=== PATIENT | female | born 1940 | race Caucasian/White ===

== ENCOUNTER 2017-07-17 11:11 | Emergency (ER) | payer MEDICARE, OTHER ==
[2017-07-17 11:45] LABS: BASOPHILS 0.3 % (0-2); EOSINOPHILS 0.9 % (0-7); HEMATOCRIT 40.8 % (36.0-48.0); HEMOGLOBIN 13.6 g/dL (12-16); IMMATURE GRANULOCYTES 0.2 % (0-5); LYMPHOCYTES 31.5 % (15-50); MCHC 33.3 g/dL (31.0-37.0); NEUTROPHILS 61.1 % (40-80); PLATELET COUNT 210 10x3/uL (130-400); RBC 4.12 10x6/uL (4.00-5.40); RDW 13.8 % (11.5-14.5); WBC 6.5 10x3/uL (4.8-10.8)
[2017-07-17 12:17] LABS: ALBUMIN 3.9 g/dL (3.4-5.0); ANION GAP 12.7 mmol/L (8-16); BILIRUBIN - TOTAL 0.29 mg/dL (0.2-1.3); CALCIUM 9.1 mg/dL (8.5-10.1); CARBON DIOXIDE 28.5 mmol/L (21.0-32.0); POTASSIUM - SERUM 4.2 mmol/L (3.5-5.1); PROTEIN - SERUM 7.4 g/dL (6.4-8.2)
[2017-07-17 13:49] LABS: CKMB 1.1 U/L (0.0-3.6); CREATINE KINASE 72 UL (21-215); MAGNESIUM - SERUM 2.3 mg/dL (1.8-2.4); PRO BNP 205 pg/mL (0-450)
[2017-07-17 13:50] LABS: TROPONIN-I < 0.017 ng/mL (0.000-0.060)
== END 2017-07-17 17:08 | disposition home or self-care (01) ==
LOC: D.ER 11:11
PROVIDERS: Family Medicine
DX: R42 Dizziness and giddiness (principal); F17.200 Nicotine dependence, unspecified, uncomplicated

== ENCOUNTER → 2017-11-20 07:37 | Outpatient (CLI) | payer MEDICARE, OTHER | END | disposition home or self-care (01) | LOC: D.NM 07:37 | DX: R42 Dizziness and giddiness (principal) ==

== ENCOUNTER → 2018-01-01 11:06 | Outpatient (CLI) | payer MEDICARE, OTHER | END | disposition home or self-care (01) | LOC: D.NM 11:06 | DX: R11.2 Nausea with vomiting, unspecified (principal); R10.9 Unspecified abdominal pain ==

== ENCOUNTER 2018-04-16 23:31 | Emergency (ER) | payer MEDICARE, OTHER ==
[~2018-04-16] VITALS: Ht 162.6 cm; Wt 45.9 kg
[2018-04-16 23:40] VITALS: Ht 162.6 cm; Wt 45.9 kg
[2018-04-16] MEDS ORDERED: OMEPRAZOLE40 MG PO (23:42)
[2018-04-16] MEDS ORDERED: DONEPEZIL HCL5 M1 PO (23:42)
[2018-04-16] MEDS ORDERED: ATIVAN0.5 MG PO (23:42)
[2018-04-16] MEDS ORDERED: BAYER CHEWABLE81 MG PO (23:43)
[2018-04-16] MEDS ORDERED: ZOFRAN4 MG PO (23:43)
[2018-04-17 00:01] LABS: HEMATOCRIT 38.3 % (36.0-48.0); HEMOGLOBIN 12.9 g/dL (12-16); LYMPHOCYTES 34.2 % (15-50); MCH 32.3 pg (26.0-34.0); MCHC 33.7 g/dL (31.0-37.0); NEUTROPHILS 58.1 % (40-80); PLATELET COUNT 288 10x3/uL (130-400); RBC 3.99 10x6/uL (4.00-5.40); RDW 13.2 % (11.5-14.5); WBC 7.1 10x3/uL (4.8-10.8)
[2018-04-17 00:14] LABS: ALBUMIN 3.6 g/dL (3.4-5.0); ANION GAP 11.2 mmol/L (8-16); BILIRUBIN - TOTAL 0.19 mg/dL (0.2-1.3); CALCIUM 9.4 mg/dL (8.5-10.1); CARBON DIOXIDE 29.8 mmol/L (21.0-32.0); CREATININE - SERUM 0.9 mg/dL (0.6-1.3); PROTEIN - SERUM 7.7 g/dL (6.4-8.2)
[2018-04-17 00:52] LABS: PRO BNP 350 pg/mL (0-450)
[2018-04-17 00:54] LABS: TROPONIN-I < 0.017 ng/mL (0.000-0.060)
[2018-04-17 01:24] VITALS: BP 125/69
== END 2018-04-17 01:24 | disposition home or self-care (01) ==
LOC: D.ER 23:31
PROVIDERS: Emergency Medicine
DX: J44.9 Chronic obstructive pulmonary disease, unspecified (principal); G20 Parkinson's disease; F17.200 Nicotine dependence, unspecified, uncomplicated

== ENCOUNTER 2018-07-08 14:21 | Inpatient (IN) | payer MEDICARE, OTHER ==
[~2018-07-08] VITALS: Ht 162.6 cm; Wt 42.2 kg
[~2018-07-08 14:21] MED LIST: ATIVAN0.5 MG PO; BAYER CHEWABLE81 MG PO; DONEPEZIL HCL5 M1 PO; OMEPRAZOLE40 MG PO; ZOFRAN4 MG PO
[2018-07-08] MEDS ORDERED: ATIVAN1 MG PO (15:36)
[2018-07-08] MEDS ORDERED: VITAMIN B-12500 MC1 PO (15:45)
[2018-07-08] MEDS ORDERED: REQUIP3 MG PO (15:49)
[2018-07-08] MEDS ORDERED: BENTYL10 MG PO (15:52)
[2018-07-08] MEDS ORDERED: FISH OIL 1,0001 CA1 PO (15:57)
[2018-07-08] MEDS ORDERED: DESERYL50 M2 PO (16:01)
[2018-07-08] MEDS ORDERED: TRAZODONE HCL100 MG PO (16:02)
[2018-07-08] MEDS ORDERED: MARINOL5 MG PO (16:06)
[2018-07-08] MEDS ORDERED: ZOLOFT50 MG PO (16:19)
[2018-07-08 16:21] VITALS: BP 120/69; BMI 16.0
[2018-07-08 19:00] VITALS: BP 134/70
[2018-07-09 07:51] LABS: ANION GAP 15.1 mmol/L (8-16); BASOPHILS 0.3 % (0-2); CALCIUM 8.4 mg/dL (8.5-10.1); CARBON DIOXIDE 19.6 mmol/L (21.0-32.0); CREATININE - SERUM 0.9 mg/dL (0.6-1.3); EOSINOPHILS 1.6 % (0-7); HEMATOCRIT 35.5 % (36.0-48.0); HEMOGLOBIN 11.7 g/dL (12-16); IMMATURE GRANULOCYTES 0.5 % (0-5); LYMPHOCYTES 35.8 % (15-50); MCH 33.8 pg (26.0-34.0); MCV 102.6 fL (80.0-100.0); MEAN PLATELET VOLUME 9.7 fL (7.4-10.4); MONOCYTES 7.3 % (2-11); NEUTROPHILS 54.5 % (40-80); POTASSIUM - SERUM 3.7 mmol/L (3.5-5.1); RBC 3.46 10x6/uL (4.00-5.40); RDW 13.9 % (11.5-14.5); WBC 6.2 10x3/uL (4.8-10.8)
[2018-07-09 08:00] VITALS: BP 113/52
[2018-07-09 08:17] LABS: PLATELET COUNT 184 10x3/uL (130-400)
[2018-07-09 11:15] VITALS: Ht 162.6 cm; Wt 42.2 kg
[2018-07-09 19:00] VITALS: BP 125/63
[2018-07-10 08:00] VITALS: BP 112/57
[2018-07-10 20:00] VITALS: BP 102/40
[2018-07-11 08:00] VITALS: BP 129/58
[2018-07-11 21:06] VITALS: BP 122/53
[2018-07-12 07:16] LABS: BASOPHILS 0.4 % (0-2); EOSINOPHILS 2.3 % (0-7); HEMATOCRIT 35.2 % (36.0-48.0); HEMOGLOBIN 11.8 g/dL (12-16); IMMATURE GRANULOCYTES 0.2 % (0-5); LYMPHOCYTES 39.4 % (15-50); MCH 33.1 pg (26.0-34.0); MCHC 33.5 g/dL (31.0-37.0); MCV 98.9 fL (80.0-100.0); MONOCYTES 6.3 % (2-11); NEUTROPHILS 51.4 % (40-80); PLATELET COUNT 210 10x3/uL (130-400); RBC 3.56 10x6/uL (4.00-5.40); RDW 13.5 % (11.5-14.5); WBC 5.3 10x3/uL (4.8-10.8)
[2018-07-12 07:33] LABS: ANION GAP 17.2 mmol/L (8-16); CALCIUM 8.4 mg/dL (8.5-10.1); CARBON DIOXIDE 19.2 mmol/L (21.0-32.0); POTASSIUM - SERUM 3.4 mmol/L (3.5-5.1)
[2018-07-12 08:00] VITALS: BP 143/56
[2018-07-12 19:00] VITALS: BP 102/47
[2018-07-13 08:12] VITALS: BP 121/66
[2018-07-13 19:00] VITALS: BP 134/51
[2018-07-14 07:29] LABS: BASOPHILS 0.3 % (0-2); EOSINOPHILS 2.3 % (0-7); HEMATOCRIT 36.5 % (36.0-48.0); HEMOGLOBIN 12.3 g/dL (12-16); IMMATURE GRANULOCYTES 0.2 % (0-5); LYMPHOCYTES 24.2 % (15-50); MCH 33.7 pg (26.0-34.0); MCHC 33.7 g/dL (31.0-37.0); MEAN PLATELET VOLUME 9.2 fL (7.4-10.4); RBC 3.65 10x6/uL (4.00-5.40); RDW 13.5 % (11.5-14.5)
[2018-07-14 07:50] LABS: CALCIUM 8.8 mg/dL (8.5-10.1); CARBON DIOXIDE 19.5 mmol/L (21.0-32.0); POTASSIUM - SERUM 3.5 mmol/L (3.5-5.1)
[2018-07-14 07:56] LABS: PLATELET COUNT 259 10x3/uL (130-400)
[2018-07-14 08:00] VITALS: BP 118/50
[2018-07-14 19:00] VITALS: BP 98/40
[2018-07-15 08:08] VITALS: BP 113/57
--- NOTE | 2018-07-15 08:32 | RHP ---
PATIENT: ULICES WHITLOCK MEDICAL RECORD: [id number] ACCOUNT: [id number] [facility] [place] : 44 ADMISSION DATE: 07/08/18 REHABILITATION HISTORY AND PHYSICAL EXAMINATION POST ADMISSION PHYSICIAN EXAMINATION DATE OF ADMISSION: 07/08/2018 ADMITTING DIAGNOSIS: Parkinson's disease. HISTORY OF PRESENT ILLNESS: The patient is admitted from her home for exacerbation of Parkinson disease. A 78-year-old female patient. She has been followed by [facility]. She was seen on 06/21/[address] Branham's clinic for mobility evaluation secondary to deconditioning, slowed gait, tremors and fatigue. She presented with increased muscle weakness, arthralgias, joint pain, and difficulty walking. The patient has got a history of COPD, emphysema, hypertriglyceridemia, mixed hyperlipidemia, gastroesophageal reflux disease. Home Health and her spouse both noted that she was continuing to decline in her physical and nutritional condition. It was recommended that she come to rehabilitation. She currently has a BMI less than 20. Symptoms of bradykinesia, possible polypharmacy that needs adjustment during her stay. She also is going to require some medical management by a physician at least 5 days per week and 24-hour care of a rehab nurse. The patient has extreme weakness, which is more proximal than distal. She has had increased impaired ability to do tasks of daily living to assist with dressing, feeding, grooming and bathing. She required intensive therapy including PT and OT and speech therapy to regain her strength, improve her gait and mobility. Also, she can use some help with her cognition and memory. All these self-care deficits in activity tolerance, all creating a considerable and taxing effort on her ability to stay at home. She had a history of falls also, she recently fell on 06/18/2018. Her /caregiver will require further education and training of the disease process, home safety instructions to be provided by nursing and also our interdisciplinary therapy team during this stay. Hopefully, we will get her home better than her prior level of functioning. COMORBIDITIES: Include a BMI less than 20, abnormal gait, unintentional weight loss, vertigo, emphysema, COPD, gastroesophageal reflux disease, osteoarthritis, age-related osteoporosis, nicotine dependence, depression and dementia. PAST MEDICAL HISTORY: Significant for colon polyps, hypertriglyceridemia, hyperlipidemia, anxiety, history of carotid stenosis, emphysema, gastroesophageal reflux disease and dizziness. PAST SURGICAL HISTORY: Includes breast biopsy, total hysterectomy, endoscopy. She has had a colonoscopy. ALLERGIES: No known drug allergies. CURRENT MEDICATIONS: Include Tylenol 650 mg every 6 hours p.r.n., B12 500 mcg daily, omega 3 one cap daily, aspirin 81 mg daily, Protonix 40 mg daily, trazodone 50 mg at bedtime, Zofran 4 mg every 4 hours p.r.n., Marinol 5 mg b.i.d. with meals, Zoloft 50 mg b.i.d., Bentyl 10 mg t.i.d., lorazepam 1 mg t.i.d. p.r.n. and Requip 3 mg t.i.d. HISTORY AND PHYSICAL [id number] ULICES WHITLOCK HABITS: No alcohol or tobacco use. FAMILY HISTORY: Noncontributory. SOCIAL HISTORY: The patient hopes to return back home with her . REVIEW OF SYSTEMS: GENERAL: Does complain of weakness and fatigue. HEENT: Denies cold, cough, or congestion. CARDIOVASCULAR: Denies chest pain. PHYSICAL EXAMINATION: VITAL SIGNS: Stable, afebrile. GENERAL: A very small petite female in no acute distress, alert upon exam. HEENT: Normocephalic and atraumatic. Mucosa moist. NECK: Supple. No lymphadenopathy. LUNGS: Clear at this time. HEART: Regular rate and rhythm. No murmurs, rubs or gallops. ABDOMEN: Benign. EXTREMITIES: No clubbing, cyanosis or edema. NEUROLOGIC: Consistent with Parkinson's with a noted tremor and flat affect. LABORATORY DATA: Her white count is 6.2, H&H of 11.7 and 35.5 and platelet count is 184. Sodium 139, potassium 3.7, BUN and creatinine of 16 and 0.9, blood sugar is noted to be 79. ASSESSMENT: This 78-year-old female patient admitted to rehab with a working diagnosis of exacerbation of Parkinson's. The patient has potential to make improvement. We instituted the following multidisciplinary therapies including, but not limited to physical, occupational, respiratory, speech, nutritional services, prosthetics and orthotics. Given her complex medical condition and risk for more complications, rehabilitation services cannot be provided at a low level of care such as penitentiary facility. PLAN: 1. Admit to [facility] for intensive inpatient therapy to include the following disciplines: A. Physical therapy to improve gait, all transfer skills and bed mobility to a modified independent level. B. Occupational therapy to a modified independent level. C. Case management to assist with discharge planning and placement options. D. Nutrition to assist with nutritional needs. E. Rehabilitation nursing to assist in monitoring the patient's underlying medical conditions and to assist with any type of bowel or bladder management. 2. The patient's current medication and medical care will be continued. 3. We will monitor medications closely including her Requip and adjust as necessary. 4. I am going to follow up in the a.m. TRANSINT:[id number] Voice Confirmation ID: [id number] DOCUMENT ID: [id number] 07/13/2018 Edited for willow SINGH. FRANCISCO notes whether there has been none or any medical/functional change since admission: HISTORY AND PHYSICAL [id number] ULICES WHITLOCK - No change since preadmission screen. FRANCISCO attests patient continues to be appropriate for IRF: - Continues to be appropriate. MIKE GAMA MD at 0832 CC: [id number] DICTATION DATE: 07/09/18 0821 CONFIGURATION DEVELOPER: 07/09/18 0947 ADM IN [facility] [address] [place] [address]
--- NOTE | 2018-07-15 16:45 | CN ---
PATIENT NAME:ULICES WHITLOCK MEDICAL RECORD: [id number] : 44 LOCATION:[id number] ADMIT DATE: 07/08/18 ACCOUNT: [id number] CONSULTING PHYSICIAN: RUBEN SCHROEDER MD REFERRING PHYSICIAN: MIKE GAMA MD DATE OF CONSULTATION: 07/14/2018 IDENTIFYING DATA: The patient is 78 years old and she is admitted to the hospital secondary to deconditioning. HISTORY OF PRESENT ILLNESS: The patient apparently is not eating very well. She is becoming increasingly weak. She has a BMI that is less than 20. Apparently, she has been given Requip for some restless legs, trazodone for sleep consolidation, and I presume Zoloft for an antidepressant. The patient is very cooperative, awake and alert, but clearly quite confused and not answering questions clearly. Her sitting across the room on the empty bed next to her and she does not know who he is or what his relationship is to her. She answers questions in a very impaired manner. The says that this is inconsistent with her general picture that it comes and goes. She is confused, but then she is not. He says he has had her to a neurologist who says this is not Parkinson's disease. He says he has had her to a psychologist who has told her that it is not dementia. He is frustrated and confused. MENTAL STATUS EXAMINATION: The patient is awake and alert. She is oriented to person only. Her mood is euthymic. Her affect is appropriate. Thought processes are disorganized. She has severe impairment of her memory, concentration and abstraction abilities. There is no evidence of acute dangerousness or overt psychotic symptoms. ASSESSMENT: Dementia, type uncertain either Parkinson's related or more than likely Alzheimer dementia. PLAn: The patient is clearly impaired and the level of impairment is consistent with a dementia. Unfortunately, when I go to discuss this with the , he tells me that ordinarily or intermittently she is impaired in this way and at other times, she is very coherent. He says he has had her to a neurologist who has told him that this is not Parkinson disease. He says he has taken her to a psychologist who tells him this is definitely not dementia, but does not tell him what it is. The psychologist according to the says that it is related to her taking too many medicines, but the psychologist then goes on to say that she is not able to adjust medications because of her lack of credentials in that area. ASSESSMENT: Senile dementia of the Alzheimer's type. PLAN: At this time, I think the patient is demented. I think the patient's is a very nice and kind and well-meaning man who certainly has not misleading anyone, but the symptoms do not look like delirium. It does not look like medication side effects. It does look like a dementia and the fact that sometimes the patient is more coherent than at other times is not inconsistent with the disease suggest that him describing her as being completely lucid and completely coherent at times and then at other times, impaired with her cognition in this way does not fit. I do not have anything specific to offer other than the fact that it appears to be a dementia. I would recommend that the patient keep her appointment with a neurologist at [facility]. I am not sure how CONSULT REPORT [id number] ULICES WHITLOCK to reconcile this with what the psychologist has told and especially cannot do so given my limited access to records at this point. I can say that the patient is not acutely dangerous. She is not suicidal, psychotic, or homicidal and her takes very good care of her and watch her closely. Probably the biggest concern is her reduced oral intake. Obviously, she is going to grow weaker and become susceptible to pneumonia or some other opportunistic infection if she does not get out of bed and function and move about more. TRANSINT:[id number] Voice Confirmation ID: [id number] DOCUMENT ID: [id number] RUBEN SCHROEDER MD at 1645 CC: [id number] DICTATION DATE: 07/14/18 172 DATA REVIEWER: 07/15/18 0147 [facility] [address] [place] [address]
[2018-07-15 19:00] VITALS: BP 120/57
[2018-07-16 07:24] LABS: BASOPHILS 0.6 % (0-2); EOSINOPHILS 3.7 % (0-7); HEMATOCRIT 35.3 % (36.0-48.0); HEMOGLOBIN 11.8 g/dL (12-16); IMMATURE GRANULOCYTES 0.2 % (0-5); LYMPHOCYTES 35.6 % (15-50); MCH 32.9 pg (26.0-34.0); MCHC 33.4 g/dL (31.0-37.0); MCV 98.3 fL (80.0-100.0); MEAN PLATELET VOLUME 8.9 fL (7.4-10.4); MONOCYTES 9.5 % (2-11); NEUTROPHILS 50.4 % (40-80); PLATELET COUNT 254 10x3/uL (130-400); RBC 3.59 10x6/uL (4.00-5.40); RDW 13.6 % (11.5-14.5); WBC 5.4 10x3/uL (4.8-10.8)
[2018-07-16 07:35] LABS: ANION GAP 16.3 mmol/L (8-16); CALCIUM 8.6 mg/dL (8.5-10.1); CARBON DIOXIDE 20.8 mmol/L (21.0-32.0); CREATININE - SERUM 0.9 mg/dL (0.6-1.3); POTASSIUM - SERUM 3.1 mmol/L (3.5-5.1)
[2018-07-16 07:47] VITALS: BP 122/62
[2018-07-17 08:18] VITALS: BP 118/65
[2018-07-18 00:10] VITALS: BP 107/50
[2018-07-18 07:59] VITALS: BP 114/64
[2018-07-18 18:43] VITALS: BP 110/61
[2018-07-19 07:40] LABS: BASOPHILS 0.6 % (0-2); EOSINOPHILS 2.3 % (0-7); HEMATOCRIT 35.3 % (36.0-48.0); HEMOGLOBIN 12.2 g/dL (12-16); IMMATURE GRANULOCYTES 0.2 % (0-5); LYMPHOCYTES 29.8 % (15-50); MCH 33.7 pg (26.0-34.0); MCHC 34.6 g/dL (31.0-37.0); MCV 97.5 fL (80.0-100.0); MEAN PLATELET VOLUME 8.6 fL (7.4-10.4); MONOCYTES 9.2 % (2-11); NEUTROPHILS 57.9 % (40-80); PLATELET COUNT 233 10x3/uL (130-400); RBC 3.62 10x6/uL (4.00-5.40); RDW 13.4 % (11.5-14.5); WBC 5.2 10x3/uL (4.8-10.8)
[2018-07-19 07:50] LABS: ANION GAP 17.7 mmol/L (8-16); CALCIUM 8.7 mg/dL (8.5-10.1); CARBON DIOXIDE 18.9 mmol/L (21.0-32.0); CREATININE - SERUM 0.9 mg/dL (0.6-1.3); POTASSIUM - SERUM 3.6 mmol/L (3.5-5.1)
[2018-07-19 08:00] VITALS: BP 100/49
[2018-07-19] MEDS ORDERED: MEGACE40 MG PO (08:14)
== END 2018-07-19 12:00 | disposition home health service (06) | DRG 57 ==
LOC: D.REHAB 14:21
PROVIDERS: ADMIT Emergency Medicine
DX: G20 Parkinson's disease (principal); Z68.1 Body mass index [BMI] 19.9 or less, adult; R63.4 Abnormal weight loss; R42 Dizziness and giddiness; J43.9 Emphysema, unspecified; K21.9 Gastro-esophageal reflux disease without esophagitis; M19.90 Unspecified osteoarthritis, unspecified site; F17.200 Nicotine dependence, unspecified, uncomplicated; F32.9 Major depressive disorder, single episode, unspecified; R53.1 Weakness; G30.9 Alzheimer's disease, unspecified; F02.80 Dementia in other diseases classified elsewhere, unspecified severity, without behavioral disturbance, psychotic disturbance, mood disturbance, and anxiety

== ENCOUNTER 2018-07-21 14:28 | Outpatient (CLI) | payer MEDICARE, OTHER ==
[~2018-07-21 14:28] MED LIST changes: +ATIVAN1 MG PO; +BENTYL10 MG PO; +DESERYL50 M2 PO; +FISH OIL 1,0001 CA1 PO; +MARINOL5 MG PO; +MEGACE40 MG PO; +REQUIP3 MG PO; +TRAZODONE HCL100 MG PO; +VITAMIN B-12500 MC1 PO; +ZOLOFT50 MG PO
[2018-07-21] MEDS ORDERED: VITAMIN B-12500 MC1 PO (14:50)
[2018-07-21] MEDS ORDERED: SEROQUEL25 MG PO (14:50)
[2018-07-22 13:23] VITALS: BMI 16.1
== END 2018-07-21 17:51 | disposition other institution (70) ==
LOC: D.OPS 14:28
PROVIDERS: ATTEND Family Medicine
DX: R53.1 Weakness (principal)

== ENCOUNTER 2018-07-21 14:28 | Inpatient (IN) | payer MEDICARE, OTHER ==
[~2018-07-21] VITALS: Ht 162.6 cm; Wt 42.6 kg
[2018-07-21] MEDS ORDERED: VITAMIN B-12500 MC1 PO (14:50)
[2018-07-21] MEDS ORDERED: SEROQUEL25 MG PO (14:50)
[2018-07-21 15:00] VITALS: BP 120/70
[2018-07-21 15:39] LABS: APPEARANCE CLEAR (CLEAR); BILIRUBIN NEGATIVE (NEGATIVE); COLOR YELLOW (YELLOW); GLUCOSE NEGATIVE (NEGATIVE); KETONE NEGATIVE (NEGATIVE); NITRITE NEGATIVE (NEGATIVE); PROTEIN NEGATIVE (NEGATIVE); UROBILINOGEN NORMAL (NORMAL)
[2018-07-21 16:00] VITALS: BP 126/84
[2018-07-21 16:14] LABS: BASOPHILS 0.5 % (0-2); EOSINOPHILS 2.2 % (0-7); HEMATOCRIT 35.5 % (36.0-48.0); HEMOGLOBIN 11.7 g/dL (12-16); IMMATURE GRANULOCYTES 0.4 % (0-5); LYMPHOCYTES 29.3 % (15-50); MCH 33.1 pg (26.0-34.0); MCV 100.3 fL (80.0-100.0); MEAN PLATELET VOLUME 8.9 fL (7.4-10.4); MONOCYTES 10.1 % (2-11); NEUTROPHILS 57.5 % (40-80); PLATELET COUNT 237 10x3/uL (130-400); RBC 3.54 10x6/uL (4.00-5.40); RDW 13.6 % (11.5-14.5); WBC 5.6 10x3/uL (4.8-10.8)
[2018-07-21 16:34] LABS: ALBUMIN 3.2 g/dL (3.4-5.0); ALKALINE PHOSPHATASE 52 U/L (46-116); ALT (SGPT) 23 U/L (10-68); BILIRUBIN - TOTAL 0.15 mg/dL (0.2-1.3); CALC OSMOLALITY 287 mosm/kg (275-300); CALCIUM 8.6 mg/dL (8.5-10.1); CARBON DIOXIDE 20.7 mmol/L (21.0-32.0); CHLORIDE - SERUM 112 mmol/L (98-107); CREATININE - SERUM 0.9 mg/dL (0.6-1.3); GLUCOSE 106 mg/dL (74-106); POTASSIUM - SERUM 4.2 mmol/L (3.5-5.1); PROTEIN - SERUM 6.9 g/dL (6.4-8.2); SODIUM 144 mmol/L (136-145); UREA NITROGEN 14 mg/dL (7-18); eGFR NON AFRICAN AMERICAN 64 mL/min (90-120)
[2018-07-21 16:37] LABS: AMYLASE - SERUM 38 U/L (25-115); LIPASE 97 U/L (73-393)
[2018-07-21 16:38] LABS: TROPONIN-I < 0.017 ng/mL (0.000-0.060)
[2018-07-21 17:00] VITALS: BP 137/72
[2018-07-21 18:14] VITALS: BP 127/71
--- NOTE | 2018-07-21 18:16 | NUR ---
CALLED AND ORDERED PT A TRAY.
[2018-07-21 19:07] VITALS: BP 121/73
--- NOTE | 2018-07-21 19:36 | NUR ---
REPORT CALLED TO ROVERTO
--- NOTE | 2018-07-21 20:30 | NUR ---
PT TO FLOOR VIA BED ACCOMPANIED BY HOSPITAL STAFF AND FAMILY. A/0 TO PERSON. VSS, RR EVEN AND UL. NO S/S OF DISTRESS. WENT OVER SPECIFIC MED REC REQUESTS WITH PT AND DAUGHTER. PT SEEMS SLIGHTLY CONFUSED. FALL PRECAUTIONS IN TACT, WCTM AND FOLLOW POC. CL IN REACH, SR UP X2, BED IN LOWEST POSITION. ADMINISSION ASSESSMENT AND HISTORY COMPLETED. FAMILY AT BEDSIDE.
--- NOTE | 2018-07-21 22:00 | NUR ---
22G INSERTED INTO R FA X1 STICK AND WRAPPED WITH PATRICK BANDAGE. PT PULLED OUT PREVIOUS IV IN L AC. CATHETER INTACT. NO C/O DISCOMFORT AT NEW IV SITE. WCTM AND FOLLOW POC. CL IN REACH, SR UP X2, BED IN LOWEST POSITION, AT BEDSIDE.
[2018-07-22] VITALS: BP 126/59
[2018-07-22 01:45] VITALS: BP 126/59; BMI 16.1
[2018-07-22 04:00] VITALS: BP 106/59
--- NOTE | 2018-07-22 05:00 | NUR ---
PT RESTING IN BED WITH . RR EVEN AND UL, NO S/S OF DISTRESS. CL IN REACH, SR UP X2, BED IN LOW POSITION. VSS.
[2018-07-22 06:42] LABS: BASOPHILS 0.4 % (0-2); EOSINOPHILS 2.8 % (0-7); HEMATOCRIT 33.1 % (36.0-48.0); HEMOGLOBIN 10.9 g/dL (12-16); IMMATURE GRANULOCYTES 0.2 % (0-5); LYMPHOCYTES 32.9 % (15-50); MCH 32.7 pg (26.0-34.0); MCHC 32.9 g/dL (31.0-37.0); MCV 99.4 fL (80.0-100.0); MONOCYTES 7.9 % (2-11); NEUTROPHILS 55.8 % (40-80); PLATELET COUNT 228 10x3/uL (130-400); RBC 3.33 10x6/uL (4.00-5.40); RDW 13.4 % (11.5-14.5); WBC 5.1 10x3/uL (4.8-10.8)
[2018-07-22 07:05] LABS: ALBUMIN 3.1 g/dL (3.4-5.0); ANION GAP 16.2 mmol/L (8-16); BILIRUBIN - TOTAL 0.28 mg/dL (0.2-1.3); CALCIUM 8.4 mg/dL (8.5-10.1); CARBON DIOXIDE 20.2 mmol/L (21.0-32.0); CREATININE - SERUM 0.8 mg/dL (0.6-1.3); PROTEIN - SERUM 6.3 g/dL (6.4-8.2)
[2018-07-22 07:09] LABS: POTASSIUM - SERUM 3.4 mmol/L (3.5-5.1)
[2018-07-22 09:45] VITALS: BP 113/64
--- NOTE | 2018-07-22 10:03 | NUR ---
REHAB PRESCREENING Rehab referral received and chart reviewed. Ms. Dubois was discharged from this rehab on Thursday as she was doing well and family did not want her to miss her neurology appointment at [facility] scheduled for Thursday. She was near the end of her rehab stay. Rehab will follow for PT and ST evaluations in order to reassess possible need for rehab. Thank you for this referral! Augusta Verduzco, [employer]IM [employer]IMING TOOL SETTER Rehab PD
[2018-07-22 11:00] VITALS: BP 116/55
[2018-07-22 13:23] VITALS: Ht 162.6 cm; Wt 42.6 kg
[2018-07-22 15:00] VITALS: BP 95/59
--- NOTE | 2018-07-22 17:19 | MORECARE ---
CASE MANAGEMENT DISCHARGE SUMMARY PATIENT: ULICES WHITLOCK UNIT: [id number] ADM DATE: 07/21/18 AGE: 78 : 42 SEX: F ROOM/BED: D.2133 AUTHOR: DIPTI ISIDRO PHYSICIAN: REFERRING PHYSICIAN: DORIS WHITNEY MD DATE OF SERVICE: 07/22/18 Discharge Plan Patient Name: ULICES WHITLOCK Facility: [facility]:[place] : 1940 Planned Disposition: Inpatient Rehab Anticipated Discharge Date: 07/23/18 Discharge Date: Expected LOS: 2 Initial Reviewer: [email or web address] Initial Review Date: 07/21/2018 Generated: 07/22/18 6:19 pm Patient Name: ULICES WHITLOCK Page [id number] at 1719 All edits/amendments must be made on the electronic document DICTATION DATE: 07/22/181717 INSPECTOR CANNED FOOD RECONDITIONING: OSCAR 07/22/181717 RPT#: [id number] DC DATE: STATUS: ADM IN [facility] [address] [place] [address] END OF REPORT
--- NOTE | 2018-07-22 17:32 | MORECARE ---
CASE MANAGEMENT DISCHARGE SUMMARY PATIENT: ULICES WHITLOCK UNIT: [id number] ADM DATE: 07/21/18 AGE: 78 : 42 SEX: F ROOM/BED: D.2133 AUTHOR: DIPTI ISIDRO PHYSICIAN: REFERRING PHYSICIAN: DORIS WHITNEY MD DATE OF SERVICE: 07/22/18 Discharge Plan Patient Name: ULICES WHITLOCK Facility: [facility]:[place] : 1940 Planned Disposition: Inpatient Rehab Anticipated Discharge Date: 07/23/18 Discharge Date: Expected LOS: 2 Initial Reviewer: [email or web address] Initial Review Date: 07/21/2018 Generated: 07/22/18 6:32 pm DCPIA - Discharge Planning Initial Assessment Updated by [email or web address]: Vincent Santiago on 07/22/18 5:30 pm * Is the patient Alert and Oriented? No * How many steps to enter\exit or inside your home? * PCP DR. WHITNEY * Pharmacy [facility] * Preadmission Environment Home with Family * ADLs Partial Dependent * Partial ADLs (Assistance needed) Ambulation Bathing Medication Management Transfers * Equipment Shower Chair Wheelchair * Other Equipment [employer], MEDICAL EQUIPMENT PROVIDER * List name and contact numbers for known caregivers / representatives who currently or will assist patient after discharge: BROOKE WHITLOCK, SPOUSE, * Verbal permission to speak to the caregivers and representatives has been obtained from the patient. N/A * Community resources currently utilized Home Health Other * Please name any agencies selected above. [facility] * Additional services required to return to the preadmission environment? Yes * Can the patient safely return to the preadmission environment? Yes * Has this patient been hospitalized within the prior 30 days at any hospital? Yes Last DP export: 07/22/18 4:19 pm Patient Name: ULICES WHITLOCK Page [id number] at 1732 All edits/amendments must be made on the electronic document DICTATION DATE: 07/22/181731 ADMITTED ATTORNEYS: OSCAR 07/22/181731 RPT#: [id number] DC DATE: STATUS: ADM IN [facility] [address] [place] [address] END OF REPORT
--- NOTE | 2018-07-22 17:40 | MORECARE ---
CASE MANAGEMENT DISCHARGE SUMMARY PATIENT: ULICES WHITLOCK UNIT: [id number] ADM DATE: 07/21/18 AGE: 78 : 42 SEX: F ROOM/BED: D.1723 AUTHOR: SANNA,DOC PHYSICIAN: REFERRING PHYSICIAN: DORIS WHITNEY MD DATE OF SERVICE: 07/22/18 Discharge Plan Patient Name: ULICES WHITLOCK [facility] [facility] 1940 Planned Disposition: Inpatient Rehab Anticipated Discharge Date: 07/23/18 Discharge Date: Expected LOS: 2 Initial Reviewer: [email or web address] Initial Review Date: 07/21/2018 Generated: 07/22/18 6:39 pm Comments DCP- Discharge Planning Updated by [email or web address]: Vincent Santiago on 07/22/18 4:[address] Patient Name: ULICES WHITLOCK Admission Status: ER Accout number: [id number] Admission Date: 07-21-2018 : 1940 Admission Diagnosis: Attending: DORIS WHITNEY Current LOS: 1 Anticipated DC Date: 07-23-2018 Planned Disposition: Inpatient Rehab Primary Insurance: MEDICARE A & B PLANNED EXTERNAL PROVIDER: [facility] INPATIENT REHAB Discharge Planning Comments: CM RECEIVED ORDER FOR INPATIENT REHAB PRESCREENING. CM MET WITH PT AND SPOUSE IN ROOM TO DISCUSS DISCHARGE PLANNING AND NEEDS. PT SLEEPING THROUGHOUT ASSESSMENT, PT'S SPOUSE REPORTS PT NEEDED HER REST. SPOUSE REPORTS PT LIVING AT HOME DEPENDENTLY ON HIM DUE TO DEMENTIA AND DECLINING HEALTH. PT HAS WALKER THAT SHE WAS HAVING TROUBLE USING PRIOR TO ADMISSION TO HOSPITAL AND WHEELCHAIR FROM [facility]. PT HAS HOME HEALTH WITH [facility] WHO TOLD HIM TO GET PT TO THE HOSPITAL. PT WAS IN INPATIENT REHAB FOR 10 OR 11 DAYS AND WENT HOME; SHE DID WELL THE FIRST DAY HOME; THEY DROVE TO DOCTOR APPOINTMENT AND THINGS WERE FINE. PT THEN WENT "DOWN." CM DISCUSSED AVAILABILITY OF HOME HEALTH, REHAB SERVICES AND MEDICAL EQUIPMENT. PT'S SPOUSE REPORTS HE WOULD CONSIDER INPATIENT REHAB AGAIN STATING HE ONLY WANTS WHAT IS BEST FOR PT. PT'S SPOUSE DOES NOT WANT TO CONSIDER LONG TERM FACILITY AT THIS TIME AND FURTHER STATES HE WILL BE SPEAKING TO THE CHILDREN TO DISCUSS DISCHARGE PLANNING. CM PROVIDED CM CONTACT INFORMATION. PT'S SPOUSE WOULD LIKE INPATIENT REHAB AGAIN IF POSSIBLE FOR PT TO RETURN HOME WITH HIM. IF NOT ACCEPTED AT REHAB, PT'S SPOUSE IS NOT YET CONSIDERING LONG TERM FACILITY AND WILL NEED TO SPEAK TO FAMILY REGARDING PLANS. CM WAITING THERAPY EVAUATIONS WELL INPATIENT REHAB PRESCREENING. Electrician Radio: Vincent Santiago DCPIA - Discharge Planning Initial Assessment Updated by [email or web address]: Vincent Santiago on 07/22/18 5:30 pm * Is the patient Alert and Oriented? No * How many steps to enter\\exit or inside your home? * PCP DR. WHITNEY * Pharmacy [facility] [place] [facility] [address] * Preadmission Environment Home with Family * ADLs Partial Dependent * Partial ADLs (Assistance needed) Ambulation Bathing Medication Management Transfers * Equipment Shower Chair Wheelchair * Other Equipment [employer], MEDICAL EQUIPMENT PROVIDER * List name and contact numbers for known caregivers / representatives who currently or will assist patient after discharge: BROOKE WHITLOCK, SPOUSE, * Verbal permission to speak to the caregivers and representatives has been obtained from the patient. N/A * Community resources currently utilized Home Health Other * Please name any agencies selected above. [facility]YSICAL [facility] * Additional services required to return to the preadmission environment? Yes * Can the patient safely return to the preadmission environment? Yes * Has this patient been hospitalized within the prior 30 days at any hospital? Yes Last DP export: 07/22/18 4:32 pm Patient Name: ULICES WHITLOCK Page 82745 at 1740 All edits/amendments must be made on the electronic document DICTATION DATE: 07/22/181738 MANAGER SHIFT: OSCAR 07/22/181738 RPT#: [id number] DC DATE: STATUS: ADM IN [facility] [address] [place] [address] END OF REPORT
--- NOTE | 2018-07-22 18:30 | NUR ---
DISCHARGE TEACHING PROVIDED AND PAPERS SIGNED. PT VERBALIZED UNDERSTANDING AND DENIES ANY QUESTIONS OR CONCERNS. ALL BELONGINGS COLLECTED AND SENT WITH PT. D/C PIV WITH CATHETER TIP FULLY INTACT. FAMILY HERE FOR TRANSPORTATION. WILL ESCORT PT DOWN AT THIS TIME.
--- NOTE | 2018-07-23 08:47 | MORECARE ---
CASE MANAGEMENT DISCHARGE SUMMARY PATIENT: ULICES WHITLOCK UNIT: [id number] ADM DATE: 07/21/18 AGE: 78 : 42 SEX: F ROOM/BED: D.2133 AUTHOR: DIPTI ISIDRO PHYSICIAN: REFERRING PHYSICIAN: DORIS WHITNEY MD DATE OF SERVICE: 07/23/18 Discharge Plan Patient Name: ULICES WHITLOCK Facility: [facility]:[place] : 1940 Planned Disposition: Inpatient Rehab Anticipated Discharge Date: 07/22/18 Discharge Date: 07/22/2018 Expected LOS: 1 Initial Reviewer: [email or web address] Initial Review Date: 07/21/2018 Generated: 07/23/18 9:46 am Comments DCP- Discharge Planning Updated by [email or web address]: Vincent Santiago on 07/23/18 7:[address] Patient Name: ULICES WHITLOCK Encounter No: [id number] : 1940 Primary Insurance: MEDICARE A & B Anticipated DC Date: 07-22-2018 Planned Disposition: HOME DCP follow-up note: CM REVIEWED CHART THIS MORNING. PT DISCHARGED HOME LAST EVENING. PT WAS ARRANGED WITH [facility] AND NO OTHER HOME SERVICES WERE ORDERED OR ARRANGED PRIOR TO PT'S DISCHARGE HOME WITH SPOUSE. TUSHAR Roche DCP- Discharge Planning Updated by [email or web address]: Vincent Santiago on 07/22/18 4:[address] Patient Name: ULICES WHITLOCK Admission Status: ER Accout number: [id number] Admission Date: 07-21-2018 : 1940 Admission Diagnosis: Attending: DORIS WHITNEY Current LOS: 1 Anticipated DC Date: 07-23-2018 Planned Disposition: Inpatient Rehab Primary Insurance: MEDICARE A & B PLANNED EXTERNAL PROVIDER: [facility] INPATIENT REH[facility] Discharge Planning Comments: CM RECEIVED ORDER FOR INPATIENT REHAB PRESCREENING. CM MET WITH PT AND SPOUSE IN ROOM TO DISCUSS DISCHARGE PLANNING AND NEEDS. PT SLEEPING THROUGHOUT ASSESSMENT, PT'S SPOUSE REPORTS PT NEEDED HER REST. SPOUSE REPORTS PT LIVING AT HOME DEPENDENTLY ON HIM DUE TO DEMENTIA AND DECLINING HEALTH. PT HAS WALKER THAT SHE WAS HAVING TROUBLE USING PRIOR TO ADMISSION TO HOSPITAL AND WHEELCHAIR FROM [facility]. PT HAS [facility] HEALTH WITH [facility] WHO TOLD HIM TO GET PT TO THE HOSPITAL. PT WAS IN INPATIENT REHAB FOR 10 OR 11 DAYS AND WENT HOME; SHE DID WELL THE FIRST DAY HOME; THEY DROVE TO DOCTOR APPOINTMENT AND THINGS WERE FINE. PT THEN WENT "DOWN." CM DISCUSSED AVAILABILITY OF HOME HEALTH, REHAB SERVICES AND MEDICAL EQUIPMENT. PT'S SPOUSE REPORTS HE WOULD CONSIDER INPATIENT REHAB AGAIN STATING HE ONLY WANTS WHAT IS BEST FOR PT. PT'S SPOUSE DOES NOT WANT TO CONSIDER ALF FACILITY AT THIS TIME AND FURTHER STATES HE WILL BE SPEAKING TO THE CHILDREN TO DISCUSS DISCHARGE PLANNING. CM PROVIDED CM CONTACT INFORMATION. PT'S SPOUSE WOULD LIKE INPATIENT REHAB AGAIN IF POSSIBLE FOR PT TO RETURN HOME WITH HIM. IF NOT ACCEPTED AT REHAB, PT'S SPOUSE IS NOT YET CONSIDERING ALF FACILITY AND WILL NEED TO SPEAK TO FAMILY REGARDING PLANS. CM WAITING THERAPY EVAUATIONS WELL INPATIENT REHAB PRESCREENING. Molding Manager: Vincent Santiago DCPIA - Discharge Planning Initial Assessment Updated by [email or web address]: Vincent Santiago on 07/22/18 5:30 pm * Is the patient Alert and Oriented? No * How many steps to enter\\exit or inside your home? * PCP DR. WHITNEY * [facility] * Preadmission Environment Home with Family * ADLs Partial Dependent * Partial ADLs (Assistance needed) Ambulation Bathing Medication Management Transfers * Equipment Shower Chair Wheelchair * Other Equipment [employer], MEDICAL EQUIPMENT PROVIDER * List name and contact numbers for known caregivers / representatives who currently or will assist patient after discharge: BROOKE WHITLOCK, SPOUSE, * Verbal permission to speak to the caregivers and representatives has been obtained from the patient. N/A * Community resources currently utilized Home Health Other * Please name any agencies selected above. [facility] HOME HEALTH, NURSING AND PHYSICAL THERAPY [facility] * Additional services required to return to the preadmission environment? Yes * Can the patient safely return to the preadmission environment? Yes * Has this patient been hospitalized within the prior 30 days at any hospital? Yes Last DP export: 07/22/18 4:40 pm Patient Name: ULICES WHITLOCK Page 26163 at 0847 All edits/amendments must be made on the electronic document DICTATION DATE: 07/23/18845 FINANCIAL INSTITUTION BRANCH MANAGER: DM 07/23/1846 RPT#: [id number] DC DATE:07/22/18 STATUS: DIS IN [facility] [address] [place] [address] END OF REPORT
--- NOTE | 2018-07-27 10:45 | EC ---
PATIENT:ULICES WHITLOCK DATE OF SERVICE: 07/21/18 SEX: F MEDICAL RECORD: [id number] DATE OF : 44 LOCATION:D.M2 D.213 AGE OF PATIENT: 78 ADMISSION DATE: 07/21/18 REFERRING PHYSICIAN: INTERPRETING PHYSICIAN: SONI ROCK MD ECHOCARDIOGRAM REPORT ECHO CHARGES 4 ECHO COMPLETE Date: 07/22/18 CLINICAL DIAGNOSIS: DYSPNEA ECHOCARDIOGRAPHIC MEASUREMENTS (adult normal given) AC root (d.<3.7cm) 3.2 cm LV Septum d (<1.2 cm> 1.0 cm Valve Excursion 1.4 cm LV Septum (systole) 1.2 cm Left Atria (s.<4.0cm> 2.9 cm LVPW d(<1.2cm) 0.9 cm RV (d.<2.3cm) 2.8 cm LVPW (sytole) 1.2 cm LV diastole(<5.6CM) 4.0 cm MV E-F(>70mm/sec) cm LV systole 2.4 cm LVOT Diameter 1.6 cm MV exc.(>10mm) 1.2 cm Est.ejection fraction (50-75%) % DOPPLER: LVIT cm/sec A 51.0 cm/sec E 63.0 cm/sec LA cm/sec RVSP 31 mmHg LVOT 78 cm/sec AOP1/2T m/s Asc. Ao 110 cm/sec RVOT 67 cm/sec RA cm/sec PA 84 cm/sec AV Gradient Peak 4.86 mmHg AV Mean 2.36 mmHg AV Area 1.5 cm MV Gradient Peak 2.21 mmHg MV Mean 1.07 mmHg MV Area cm COMMENTS: Cigar Bander: Saúl CHANDLER Siding Applicator: 1 Dr. Rock TAPE# PACS Pericardial Effusion Y DATE OF SERVICE: 07/22/2018 PROCEDURE: Echocardiogram. FINDINGS: 1. Left ventricular chamber size is within normal limits. Left ventricular systolic function is normal. Overall ejection fraction estimated at 55%. 2. Left atrium, right atrium, and right ventricle chamber sizes are within normal limits. 3. Valvular structures have normal structure and motion. ECHOCARDIOGRAM REPORT [id number] ULICES WHITLOCK 4. Doppler interrogation reveals mild tricuspid regurgitation. No other valvular insufficiency or stenosis. 5. No evidence of pericardial effusion or left ventricular thrombus. TRANSINT:[id number] Voice Confirmation ID: [id number] DOCUMENT ID: [id number] SONI ROCK MD at 1045 CC: [id number] DICTATION DATE: 07/23/18 1029 [place] SUPERVISOR: 07/23/18 1144 DIS IN 07/22/18 [place] [id number] [place] [id number]
== END 2018-07-22 18:31 | disposition home or self-care (01) | DRG 392 ==
LOC: D.ER 14:28 → D.EDHOLD 17:51 → D.M2 17:51
PROVIDERS: Emergency Medicine; Family Medicine; ADMIT Family Medicine; ATTEND Family Medicine
DX: R19.7 Diarrhea, unspecified (principal); J44.1 Chronic obstructive pulmonary disease with (acute) exacerbation; F17.213 Nicotine dependence, cigarettes, with withdrawal; M19.90 Unspecified osteoarthritis, unspecified site; F41.9 Anxiety disorder, unspecified; F32.9 Major depressive disorder, single episode, unspecified; E86.0 Dehydration; Z85.3 Personal history of malignant neoplasm of breast; G31.83 Neurocognitive disorder with Lewy bodies; F02.80 Dementia in other diseases classified elsewhere, unspecified severity, without behavioral disturbance, psychotic disturbance, mood disturbance, and anxiety

== ENCOUNTER 2019-09-23 11:13 | Inpatient (IN) | payer MEDICARE, OTHER ==
[~2019-09-23] VITALS: Ht 162.6 cm; Wt 44.5 kg
[~2019-09-23 11:13] MED LIST changes: +SEROQUEL25 MG PO
[2019-09-23 11:32] VITALS: BP 152/68
--- NOTE | 2019-09-23 11:47 | NUR ---
1130 1ST NITRO 141/75 P 85 P 8/10 1135 2ND NITRO 152/68 P 94 6/[address]ITRO 88/41 P 95 6/10
[2019-09-23 11:57] LABS: BASOPHILS 0.1 % (0-2); EOSINOPHILS 0.1 % (0-7); HEMATOCRIT 41.2 % (36.0-48.0); HEMOGLOBIN 13.3 g/dL (12-16); IMMATURE GRANULOCYTES 0.2 % (0-5); LYMPHOCYTES 17.8 % (15-50); MCH 32.4 pg (26.0-34.0); MCHC 32.3 g/dL (31.0-37.0); MCV 100.2 fL (80.0-100.0); MEAN PLATELET VOLUME 8.8 fL (7.4-10.4); MONOCYTES 8.4 % (2-11); NEUTROPHILS 73.4 % (40-80); PLATELET COUNT 203 10x3/uL (130-400); RBC 4.11 10x6/uL (4.00-5.40); RDW 13.8 % (11.5-14.5); WBC 8.6 10x3/uL (4.8-10.8)
[2019-09-23 12:00] LABS: APTT 34.2 SECONDS (22.8-39.4); INR 0.93 (0.85-1.17); PROTIME 12.4 SECONDS (11.6-15.0)
[2019-09-23 12:02] LABS: CALC OSMOLALITY 278 mosm/kg (275-300); CALCIUM 8.9 mg/dL (8.5-10.1); CARBON DIOXIDE 25.7 mmol/L (21.0-32.0); CHLORIDE - SERUM 103 mmol/L (98-107); CREATININE - SERUM 1.1 mg/dL (0.6-1.3); GLUCOSE 111 mg/dL (74-106); POTASSIUM - SERUM 3.8 mmol/L (3.5-5.1); SODIUM 138 mmol/L (136-145); UREA NITROGEN 17 mg/dL (7-18); eGFR NON AFRICAN AMERICAN 51 mL/min (90-120)
[2019-09-23 12:20] LABS: ALBUMIN 3.4 g/dL (3.4-5.0); ALKALINE PHOSPHATASE 86 U/L (30-120); ALT (SGPT) 55 U/L (10-68); BILIRUBIN - TOTAL 0.52 mg/dL (0.2-1.3); CKMB 0.8 U/L (0.0-3.6); CREATINE KINASE 99 UL (21-215); MAGNESIUM - SERUM 2.1 mg/dL (1.8-2.4); PROTEIN - SERUM 7.6 g/dL (6.4-8.2)
[2019-09-23 12:21] LABS: TROPONIN-I < 0.017 ng/mL (0.000-0.060)
--- NOTE | 2019-09-23 12:54 | NUR ---
CALLED PT SON TO UPDATE HIM ON PT STATUS.
[2019-09-23 15:46] VITALS: BP 123/69; BMI 17.0
[2019-09-23 17:42] LABS: CKMB 0.9 U/L (0.0-3.6); CREATINE KINASE 102 UL (21-215)
[2019-09-23 17:46] LABS: TROPONIN-I < 0.017 ng/mL (0.000-0.060)
[2019-09-23 20:00] VITALS: BP 108/66
--- NOTE | 2019-09-23 20:00 | NUR ---
REPORT RECIEVED AND INITIAL ROUNDS COMPLETED. PT RESTING IN BED WITH CARDIZEM DRIP @ 5ML/HR. TELMETRY SR/75. O2 @ 2L/NC WITH NONLABORED RESPIRATIONS. CPOC. CALL LIGHT IN REACH.
[2019-09-24 00:30] VITALS: BP 99/45
[2019-09-24 00:46] LABS: CKMB 1.5 U/L (0.0-3.6); CREATINE KINASE 117 UL (21-215)
[2019-09-24 00:47] LABS: TROPONIN-I < 0.017 ng/mL (0.000-0.060)
[2019-09-24 04:00] VITALS: BP 123/63
[2019-09-24 05:12] LABS: BASOPHILS 0 % (0-2); EOSINOPHILS 0 % (0-7); HEMATOCRIT 40.1 % (36.0-48.0); HEMOGLOBIN 12.9 g/dL (12-16); IMMATURE GRANULOCYTES 0.3 % (0-5); LYMPHOCYTES 11.9 % (15-50); MCH 32.3 pg (26.0-34.0); MCHC 32.2 g/dL (31.0-37.0); MCV 100.5 fL (80.0-100.0); MEAN PLATELET VOLUME 9.1 fL (7.4-10.4); MONOCYTES 3.2 % (2-11); NEUTROPHILS 84.6 % (40-80); PLATELET COUNT 227 10x3/uL (130-400); RBC 3.99 10x6/uL (4.00-5.40); RDW 13.8 % (11.5-14.5); WBC 7.8 10x3/uL (4.8-10.8)
[2019-09-24 05:41] LABS: ALBUMIN 3.3 g/dL (3.4-5.0); ALKALINE PHOSPHATASE 78 U/L (30-120); ALT (SGPT) 42 U/L (10-68); BILIRUBIN - TOTAL 0.59 mg/dL (0.2-1.3); CARBON DIOXIDE 22.4 mmol/L (21.0-32.0); CHLORIDE - SERUM 104 mmol/L (98-107); CKMB 2.2 U/L (0.0-3.6); CREATINE KINASE 133 UL (21-215); MAGNESIUM - SERUM 2.2 mg/dL (1.8-2.4); PHOSPHOROUS 4.4 mg/dL (2.5-4.9); POTASSIUM - SERUM 4.1 mmol/L (3.5-5.1); PRO BNP 3175 pg/mL (0-450); PROTEIN - SERUM 7.7 g/dL (6.4-8.2); SODIUM 137 mmol/L (136-145); THYROID STIMULATING HORMONE 0.39 uIU/mL (0.36-3.74)
[2019-09-24 05:44] LABS: CALC OSMOLALITY 280 mosm/kg (275-300); CREATININE - SERUM 1.4 mg/dL (0.6-1.3); GLUCOSE 160 mg/dL (74-106); TROPONIN-I < 0.017 ng/mL (0.000-0.060); UREA NITROGEN 23 mg/dL (7-18); eGFR NON AFRICAN AMERICAN 39 mL/min (90-120)
--- NOTE | 2019-09-24 07:15 | NUR ---
RESTING QUIETLY EYES CLOSED RESP UNLABORED SKIN W/D NAD NOTED
[2019-09-24 08:18] VITALS: BP 121/63
[2019-09-24 11:55] VITALS: Ht 162.6 cm; Wt 44.5 kg
[2019-09-24] MEDS ORDERED: DONEPEZIL HCL5 MG PO (13:33)
[2019-09-24 15:14] LABS: BILIRUBIN NEGATIVE (NEGATIVE); GLUCOSE NEGATIVE (NEGATIVE); KETONE NEGATIVE (NEGATIVE); NITRITE NEGATIVE (NEGATIVE); SPECIFIC GRAVITY 1.015 (1.005-1.020); UROBILINOGEN NORMAL (NORMAL)
[2019-09-24 15:15] LABS: BACTERIA MODERATE /hpf (NEGATIVE); RED CELLS - URINE 0-5 /hpf (0-5)
--- NOTE | 2019-09-24 19:45 | NUR ---
REPORT RECIEVED AND INITIAL ROUNDS COMPLETED. PT RESTING IN BED. NO NEEDS AT THIS TIME. SEE SHIFT ASSESSMENT. CPOC.
[2019-09-24 20:00] VITALS: BP 140/71
[2019-09-25] VITALS: BP 111/48
--- NOTE | 2019-09-25 00:21 | NUR ---
BEDTIME MEDS GIVEN.PT RESTING WITH EYES CLOSED. RESPS EVEN/NONLABORED WITH O2 @ 2L/NC. CARDIZEM @ 5ML/HR INFUSING. 69/SR PER TELEMETRY.
[2019-09-25 04:00] VITALS: BP 98/74
[2019-09-25 05:14] LABS: BASOPHILS 0 % (0-2); EOSINOPHILS 0 % (0-7); HEMOGLOBIN 12.4 g/dL (12-16); IMMATURE GRANULOCYTES 0.2 % (0-5); LYMPHOCYTES 8.8 % (15-50); MCH 32.2 pg (26.0-34.0); MCHC 32.6 g/dL (31.0-37.0); MCV 98.7 fL (80.0-100.0); MEAN PLATELET VOLUME 9.1 fL (7.4-10.4); MONOCYTES 2.3 % (2-11); NEUTROPHILS 88.7 % (40-80); PLATELET COUNT 242 10x3/uL (130-400); RBC 3.85 10x6/uL (4.00-5.40); RDW 14.1 % (11.5-14.5)
[2019-09-25 05:48] LABS: ANION GAP 15.9 mmol/L (8-16); CALCIUM 8.6 mg/dL (8.5-10.1); CARBON DIOXIDE 22.4 mmol/L (21.0-32.0); CREATININE - SERUM 1.1 mg/dL (0.6-1.3); MAGNESIUM - SERUM 2.2 mg/dL (1.8-2.4); PHOSPHOROUS 3.5 mg/dL (2.5-4.9); POTASSIUM - SERUM 4.3 mmol/L (3.5-5.1)
--- NOTE | 2019-09-25 06:16 | NUR ---
PT RESTING IN BED. ALERT/ORIENTED. NO NEEDS VOICED. HOPING SHE WILL GET TO GO HOME. CARDIZEM AT 5ML/HR INFUSING. UCAF/117 PER TELEMETRY. PT WAS SR UP UNTIL THE END OF SHIFT AND THEN JUMPED BACK INTO UCAF. NO PAIN OR DISCOMFORT. NO SOB. WILL MONITOR.
--- NOTE | 2019-09-25 07:20 | NUR ---
RECIEVE REPORT. ALERT AND ORIENTED X4. SITTING UP IN BED. DENIES ANY NEEDS. CONTINUE PLAN OF CARE AND SAFETY PRECAUTIONS.
[2019-09-25 09:25] VITALS: BP 108/68
[2019-09-25 14:00] VITALS: BP 108/51
--- NOTE | 2019-09-25 19:15 | NUR ---
RECEIVED REPORT, WILL ASSUME CARE OF PT, WATCHING TV, DENIES ANY NEEDS AT THIS TIME, BED IS LOW, SRX2, CALL LIGHT IN REACH, WILL CONTINUE PLAN OF CARE
[2019-09-25 20:00] VITALS: BP 137/62
[2019-09-26] VITALS (9 sets, daily range): BP systolic 106–137; BP diastolic 51–99
--- NOTE | 2019-09-26 02:51 | NUR ---
I have reviewed this patient and I concur with the Shift Assessment completed by the Licensed Practical Nurse today this shift.\
--- NOTE | 2019-09-26 07:20 | NUR ---
RECIEVE REPORT. RESTING IN BED WITH EYES CLOSED. NO SIGNS OF DISTRESS. CONTINUE PLAN OF CARE AND SAFETY PRECAUTIONS.
[2019-09-26 07:41] LABS: BASOPHILS 0.1 % (0-2); EOSINOPHILS 0 % (0-7); HEMATOCRIT 38.5 % (36.0-48.0); HEMOGLOBIN 12.2 g/dL (12-16); IMMATURE GRANULOCYTES 0.3 % (0-5); LYMPHOCYTES 18.5 % (15-50); MCH 31.9 pg (26.0-34.0); MCHC 31.7 g/dL (31.0-37.0); MEAN PLATELET VOLUME 9.7 fL (7.4-10.4); MONOCYTES 8.8 % (2-11); NEUTROPHILS 72.3 % (40-80); RBC 3.82 10x6/uL (4.00-5.40); RDW 14.2 % (11.5-14.5)
[2019-09-26 07:48] LABS: MCV 100.8 fL (80.0-100.0); PLATELET COUNT 294 10x3/uL (130-400); WBC 11.8 10x3/uL (4.8-10.8)
[2019-09-26 08:00] LABS: ANION GAP 12.3 mmol/L (8-16); CALCIUM 8.6 mg/dL (8.5-10.1); CARBON DIOXIDE 24.4 mmol/L (21.0-32.0); CREATININE - SERUM 1.2 mg/dL (0.6-1.3); MAGNESIUM - SERUM 2.2 mg/dL (1.8-2.4); PHOSPHOROUS 3.2 mg/dL (2.5-4.9); POTASSIUM - SERUM 3.7 mmol/L (3.5-5.1)
--- NOTE | 2019-09-26 08:20 | NUR ---
ALERT AND CONFUSED TO SITUATION. UNCONTROLLED AFIB 180 ON TELEMETRY. NOTIFY ALLISON, CARDIOLOGY DELIVERY RN.
--- NOTE | 2019-09-26 14:02 | NUR ---
Nutrition follow-up: Diet: Low sodium PO intake ~80% average of last 8 meals Labs reviewed Wt: 98# +BM Will continue to provide food choices and honor food preferences. Will offer nutritional supplements and fortified foods. RDN following.
--- NOTE | 2019-09-26 17:30 | NUR ---
REPORT CALLED TO CV ICU. TRANSPORT TO CV 4 VIA WHEELCHAIR.
--- NOTE | 2019-09-26 18:08 | NUR ---
PT RECIEVED TO ICU OVERFLOW PT, HANNAH COYLE CALLED AND UPDATED
--- NOTE | 2019-09-26 20:35 | NUR ---
PT RECEIVED UP ON BEDSIDE COMMODE PER REQUEST. CONFUSION NOTED, ASKING TO GO TO BATHROOM WHILE ON BEDSIDE COMMODE. PT BACK IN BED, WITH ATTEMPTS X2 TO GET UP SOUNDING BED ALARM. PT REMOVING MONITOR CABLES AND B/P CUFF, PLACED BACK ON AND REORIENTED TO WHERE SHE WAS AND PURPOSE OF LINES AND B/P CUFF. DAUGHTER CALL GIVEN REPORT AND SPOKE WITH PT. WILL CONTINUE TO OBSERVE.
--- NOTE | 2019-09-26 22:33 | NUR ---
PT IN BED WITH LIGHTS OUT. RESTING WITH EYES OPEN. PT CALM AT THIS TIME. WILL CONTINUE TO OBSERVE
[2019-09-27] VITALS (18 sets, daily range): BP systolic 91–159; BP diastolic 50–72
--- NOTE | 2019-09-27 01:07 | NUR ---
PT RESTING WITH EYES CLOSED AND CHEST RISING. NO S/S OF DISTRESS. WILL CONTINUE TO OBSERVE
[2019-09-27 04:08] LABS: BASOPHILS 0 % (0-2); EOSINOPHILS 0.1 % (0-7); HEMATOCRIT 39.5 % (36.0-48.0); HEMOGLOBIN 12.8 g/dL (12-16); IMMATURE GRANULOCYTES 0.2 % (0-5); LYMPHOCYTES 26.3 % (15-50); MCH 32.4 pg (26.0-34.0); MCHC 32.4 g/dL (31.0-37.0); MEAN PLATELET VOLUME 8.9 fL (7.4-10.4); NEUTROPHILS 63.4 % (40-80); PLATELET COUNT 275 10x3/uL (130-400); RBC 3.95 10x6/uL (4.00-5.40); RDW 13.9 % (11.5-14.5)
[2019-09-27 04:16] LABS: WBC 8.1 10x3/uL (4.8-10.8)
[2019-09-27 04:27] LABS: ANION GAP 14.5 mmol/L (8-16); CALCIUM 8.6 mg/dL (8.5-10.1); CARBON DIOXIDE 24.2 mmol/L (21.0-32.0); CREATININE - SERUM 1.2 mg/dL (0.6-1.3); MAGNESIUM - SERUM 2.2 mg/dL (1.8-2.4); PHOSPHOROUS 2.9 mg/dL (2.5-4.9); POTASSIUM - SERUM 3.7 mmol/L (3.5-5.1)
--- NOTE | 2019-09-27 06:30 | NUR ---
PT GIVEN BATH AND UP TO BEDSIDE CHAIR. TOLERATED WELL. UNUSED IV LINES REMOVED. CALL LIGHT IN REACH. WILL CONTINUE TO OBSERVE.
--- NOTE | 2019-09-27 06:40 | NUR ---
PT ATTEMPTING TO GET UP AND DISCONNECT FROM MONITOR MULTIPLE TIME. REORIENTED EACH TIME AND BACK TO BED WITHOUT DIFFICULTY EACH TIME. PT ASKING ABOUT PEOPLE SHE THOUGHT WAS IN CHAIR AT BEDSIDE AT TIMES AND ORIENTED THAT SHE HAD NO ONE ELSE IN THE ROOM WITH HER. WILL CONTINUE TO OBSERVE.
--- NOTE | 2019-09-27 16:45 | CN ---
PATIENT NAME:ULICES WHITLOCK MEDICAL RECORD: [id number] : 44 LOCATION:RICARDO.CV04 ADMIT DATE: 09/23/19 ACCOUNT: [id number] CONSULTING PHYSICIAN: RUBEN SCHROEDER MD REFERRING PHYSICIAN: MARIA EUGENIA ANDERSON MD DATE OF CONSULTATION: 09/27/2019 IDENTIFYING DATA: The patient is 79 years old and she is admitted to the hospital secondary to chest pain and shortness of breath. CHIEF COMPLAINT: Confusion. HISTORY OF PRESENT ILLNESS: The patient has been significantly and seriously confused. She is in the bed now, trying to crawl out and requiring constant redirection. She is only oriented to person and she is angry and accusatory towards staff. Surprisingly, she is cooperative when I talked with her, but it does not last very long. She does not appear to be psychotic, although it is clear she is quite confused and upset. She had recently been given steroids secondary to exacerbation of her COPD. I do know this patient from previous clinical contact. I saw her in June of this year when she was admitted to the rehabilitation unit secondary to deconditioning. At that time, I diagnosed her with dementia, but her who was present during the evaluation was not in agreement. ASSESSMENT: 1. Alzheimer's disease. 2. Delirium secondary to multiple factors. PLAN: The patient needs supportive treatment. The steroids have been discontinued. She will be prescribed a low dose of Trilafon for thought disorganization and a low dose of a benzodiazepine for its sedative properties. I anticipate that over the next couple of days her delirium should resolve. I do think she needs 61-vvpq-v-day supervision and it is my understanding she will return home with her . I have prescribed p.r.n. medication should intermittent agitation become a problem. TRANSINT:[id number] Voice Confirmation ID: [id number] DOCUMENT ID: [id number] RUBEN SCHROEDER MD at 1645 CC: [id number] DICTATION DATE: 09/27/19 1554 BEAM WARPER: 09/27/19 1607 ADM IN [facility] [address] [place] [address]
--- NOTE | 2019-09-27 22:33 | NUR ---
PT RECEIVED WITH EYES CLOSED AND CHEST RISING. NO S/S OF DISTRESS. V/S STABLE AND WNL. PO MEDICATIONS HELD DUE TO PT NOT WAKING UP ENOUGH TO SAFETLY ADMINISTER. PT UP MOST OF PREVIOUS NIGHT WITH CONFUSION AND INCREASE THROUGHT THE DAY. PT RECEIVED ORDERS FOR ATIVAN AND GEODON WITH GEODON ADMINISTERED AND PT RESTING SINCE. WILL CONTINUE TO OBSERVE.
[2019-09-28] VITALS (15 sets, daily range): BP systolic 97–162; BP diastolic 42–108
--- NOTE | 2019-09-28 02:15 | NUR ---
PT WAKES TO VERBAL STIMULI. NO S/S OF DISTRESS. ABLE TO TAKE MEDICATIONS, TOLERATED WELL. WILL CONTINUE TO OBSERVE.
[2019-09-28 03:47] LABS: BASOPHILS 0 % (0-2); EOSINOPHILS 0 % (0-7); HEMOGLOBIN 13.3 g/dL (12-16); IMMATURE GRANULOCYTES 0.4 % (0-5); LYMPHOCYTES 22.2 % (15-50); MCH 32.2 pg (26.0-34.0); MCHC 31.7 g/dL (31.0-37.0); MCV 101.7 fL (80.0-100.0); MEAN PLATELET VOLUME 9.1 fL (7.4-10.4); MONOCYTES 7.6 % (2-11); NEUTROPHILS 69.8 % (40-80); PLATELET COUNT 302 10x3/uL (130-400); RBC 4.13 10x6/uL (4.00-5.40); RDW 13.9 % (11.5-14.5); WBC 7.4 10x3/uL (4.8-10.8)
[2019-09-28 04:03] LABS: ANION GAP 10.8 mmol/L (8-16); CALCIUM 8.7 mg/dL (8.5-10.1); CARBON DIOXIDE 28.3 mmol/L (21.0-32.0); MAGNESIUM - SERUM 2.4 mg/dL (1.8-2.4); POTASSIUM - SERUM 4.1 mmol/L (3.5-5.1)
[2019-09-28 04:14] LABS: PHOSPHOROUS 4.6 mg/dL (2.5-4.9)
--- NOTE | 2019-09-28 10:01 | NUR ---
Nutrition Follow-up: Pt confused. Nursing reports pt did not eat much for breakfast; drank some of her Boost. Diet: Cardiac, Boost TID No new wt; last wt: 98# (09/23) Labs reviewed Meds noted: Protonix -Encourage PO intake and honor food preferences within diet restrictions. -MD may consider appetite stimulant. -Monitor wt. -RD following.
--- NOTE | 2019-09-28 11:46 | MORECARE ---
CASE MANAGEMENT DISCHARGE SUMMARY PATIENT: ULICES WHITLOCK UNIT: [id number] ADM DATE: 09/23/19 AGE: 79 : 42 SEX: F ROOM/BED: D.[facility] AUTHOR: SANNADOC PHYSICIAN: REFERRING PHYSICIAN: MARIA EUGENIA ANDERSON MD DATE OF SERVICE: 09/28/19 Discharge Plan Patient Name: ULICES WHITLOCK Facility: [facility]:[place] : 1940 Planned Disposition: Home with Home Health Anticipated Discharge Date: 09/29/19 Discharge Date: Expected LOS: 6 Initial Reviewer: [email or web address] Initial Review Date: 09/23/2019 Generated: 09/28/19 12:46 pm Comments DCP- Discharge Planning Updated by [email or web address]: Clarita Alberto on 09/28/19 10:[address] Plan: Resume HHS, Son, Slim Whitlock will transport home #[phone]/ please notify of DC order. CM contacted patient's spouse, regarding DC plans/needs. Per MD notes, patient's confusion has improved some. Spouse states he has been patient's primary caregiver for the past 3 years. PCP: Smita Davison APRN, Dr. Branham. Pharmacy: [facility] [facility] [address] [facility]: [facility] w/aide 3 d/w. DME: [employer] provides, Nebulizer, walker, w/c, shower bench, BSC. Discussed SNF, Rehab with spouse and he declines, due to the patient's Dementia status, with change of environment her confusion increases. Spouse states the patient did HAD BEEN WALKING WITHOUT DEVICE PRIOR TO HOSPITALIZATION. Patient's home has 1 step and she has been managing it well. Patient's son: Denzel Whitlock #[phone], DTR: Gaby Sims #[phone] (c). Permission to speak with family: Yes. Spouse denies any additional needs at DC. Contacted patient's daughter, Gaby who states that patient's home is a safe place for her to dc to and patient's spouse. Spoke with son Slim Whitlock, who states returning home is a safe DC and he assist his father with his mother's care. Son will provide transportation upon DC. DCPIA - Discharge Planning Initial Assessment Updated by [email or web address]: Clarita Alberto on 09/28/19 11:45 am * Is the patient Alert and Oriented? No * How many steps to enter\exit or inside your home? * PCP Smita Branham * Pharmacy [address] * Preadmission Environment Home with Family * ADLs Total Dependent * Equipment Walker * Other Equipment DME: [employer] * List name and contact numbers for known caregivers / representatives who currently or will assist patient after discharge: (son) Slim Whitlock [phone] (dtr) Gaby Sims #[phone] * Verbal permission to speak to the caregivers and representatives has been obtained from the patient. Yes * Community resources currently utilized Home Health * Please name any agencies selected above. [facility], w/aide 3XW * Additional services required to return to the preadmission environment? No * Can the patient safely return to the preadmission environment? Yes * Has this patient been hospitalized within the prior 30 days at any hospital? No Patient Name: ULICES WHITLOCK Page 18142 at 1146 All edits/amendments must be made on the electronic document DICTATION DATE: 09/28/19 114 SCREEN TACKER: OSCAR 09/28/19 1146 RPT#: [id number] DC DATE: STATUS: ADM IN [facility] [address] [place] [address] END OF REPORT
--- NOTE | 2019-09-28 11:54 | MORECARE ---
CASE MANAGEMENT DISCHARGE SUMMARY PATIENT: ULICES WHITLOCK UNIT: [id number] ADM DATE: 09/23/19 AGE: 79 : 42 SEX: F ROOM/BED: D[facility] AUTHOR: SANNADOC PHYSICIAN: REFERRING PHYSICIAN: MARIA EUGENIA ANDERSON MD DATE OF SERVICE: 09/28/19 Discharge Plan Patient Name: ULICES WHITLOCK Facility: [facility]:[place] : 1940 Planned Disposition: Home with Home Health Anticipated Discharge Date: 09/29/19 Discharge Date: Expected LOS: 6 Initial Reviewer: [email or web address] Initial Review Date: 09/23/2019 Generated: 09/28/19 12:53 pm Comments DCP- Discharge Planning Updated by [email or web address]: Clarita Alberto on 09/28/19 10:[address] Plan: Resume HHS, Son, Slim Whitlock will transport home #[phone]/ please notify of DC order. CM contacted patient's spouse, regarding DC plans/needs. Per MD notes, patient's confusion has improved some. Spouse states he has been patient's primary caregiver for the past 3 years. PCP: Smita Davison APRN, Dr. Branham. Pharmacy: [address] H[facility]: [facility] , HS w/aide 3 d/w. DME: [employer] provides, Nebulizer, walker, w/c, shower bench, BSC. Discussed SNF, Rehab with spouse and he declines, due to the patient's Dementia status, with change of environment her confusion increases. Spouse states the patient did HAD BEEN WALKING WITHOUT DEVICE PRIOR TO HOSPITALIZATION. Patient's home has 1 step and she has been managing it well. Patient's son: Denzel Whitlock #[phone], DTR: Gaby Sims #[phone] (c). Permission to speak with family: Yes. Spouse denies any additional needs at DC. Contacted patient's daughter, Gaby who states that patient's home is a safe place for her to dc to and patient's spouse. Spoke with son Slim Whitlock, who states returning home is a safe DC and he assist his father with his mother's care. Son will provide transportation upon DC. DCPIA - Discharge Planning Initial Assessment Updated by [email or web address]: Clarita Alberto on 09/28/19 11:45 am * Is the patient Alert and Oriented? No * How many steps to enter\exit or inside your home? * PCP Smita Branham * Pharmacy [address] * Preadmission Environment Home with Family * ADLs Total Dependent * Equipment Walker * Other Equipment DME: [employer] * List name and contact numbers for known caregivers / representatives who currently or will assist patient after discharge: (son) Slim Whitlock [phone] (dtr) Gaby Sims #[phone] * Verbal permission to speak to the caregivers and representatives has been obtained from the patient. Yes * Community resources currently utilized Home Health * Please name any agencies selected above. [facility], w/aide 3XW * Additional services required to return to the preadmission environment? No * Can the patient safely return to the preadmission environment? Yes * Has this patient been hospitalized within the prior 30 days at any hospital? No Patient Name: ULICES WHITLOCK Page 17293 at 1154 All edits/amendments must be made on the electronic document DICTATION DATE: 09/28/191152 HOSPICE PATIENT CARE SECRETARY: OSCAR 09/28/191152 RPT#: [id number] DC DATE: STATUS: ADM IN [facility] [address] [place] [address] END OF REPORT
--- NOTE | 2019-09-28 13:30 | NUR ---
PT ARRIVED VIA W/C FROM CVICU. PT IS A&O X3. PT UNAWARE OF SITUATION BUT ORIENTS WITH REDIRECTION. PT IS HOPING TO BE DISCHARGED TOMORROW AND STATES SHE REALLY MISSES HER . PT RESTING QUIETLY AND DENIES ANY CURRENT PAIN OR NEEDS AT THIS TIME. CL IN REACH, BED IN LOWEST, SIDE RAILS X2. WILL CPOC.
--- NOTE | 2019-09-28 17:24 | NUR ---
PT SITTING UP IN BED READY TO EAT DINNER. PT DENIES ANY CURRENT PAIN OR NEEDS. CL IN REACH. WILL CPOC.
--- NOTE | 2019-09-29 00:28 | NUR ---
PT OUT AT NURSES DESK, ASKING TO SPEAK WITH HER , EXPLAINED TO PT THAT IT IS THE MIDDLE OF THE NIGHT AND HER IS PROBABLY ASLEEP AND THAT WE CAN CALL HIM IN THE MORNING, PT STATED UNDERSTANDING.
[2019-09-29 00:30] VITALS: BP 129/66
--- NOTE | 2019-09-29 04:22 | NUR ---
NOTIFIED BY MT THAT PT HAS CONVERTED INTO FLUTTER WITH A HR OF 105. PT AWAKE SITTING UP IN BED, ASYMPTOMATIC.
[2019-09-29 04:30] VITALS: BP 126/72
--- NOTE | 2019-09-29 04:34 | NUR ---
PT HAS NOW CONVERTED TO UNCONTROLLED A FIB WITH A HR RANGING FROM 110 - 130, PAGE OUT TO PHYSICIAN OPEN DIE INSPECTOR.
--- NOTE | 2019-09-29 04:40 | NUR ---
SPOKE WITH JACQUELINE MELISSA APN, ORDERS GIVEN AND CARRIED OUT.
--- NOTE | 2019-09-29 06:05 | NUR ---
I have reviewed this patient and I concur with the Shift Assessment completed by the Licensed Practical Nurse today this shift.
[2019-09-29 06:38] LABS: BASOPHILS 0.1 % (0-2); EOSINOPHILS 1.5 % (0-7); HEMATOCRIT 42.5 % (36.0-48.0); HEMOGLOBIN 13.9 g/dL (12-16); IMMATURE GRANULOCYTES 0.4 % (0-5); LYMPHOCYTES 29.4 % (15-50); MCH 32.6 pg (26.0-34.0); MCHC 32.7 g/dL (31.0-37.0); MEAN PLATELET VOLUME 9.1 fL (7.4-10.4); MONOCYTES 8.2 % (2-11); NEUTROPHILS 60.4 % (40-80); PLATELET COUNT 303 10x3/uL (130-400); RBC 4.27 10x6/uL (4.00-5.40); RDW 13.7 % (11.5-14.5); WBC 8.9 10x3/uL (4.8-10.8)
[2019-09-29 07:08] LABS: ANION GAP 12.6 mmol/L (8-16); CALCIUM 8.6 mg/dL (8.5-10.1); CARBON DIOXIDE 24.4 mmol/L (21.0-32.0); CREATININE - SERUM 1.2 mg/dL (0.6-1.3); MAGNESIUM - SERUM 2.1 mg/dL (1.8-2.4); PHOSPHOROUS 3.6 mg/dL (2.5-4.9)
[2019-09-29 07:11] LABS: MCV 99.5 fL (80.0-100.0)
[2019-09-29 08:50] VITALS: BP 104/83
--- NOTE | 2019-09-29 10:06 | NUR ---
CONVERTED TO FLUTTER. HR 80. WILL CONT. PLAN OF CARE.
[2019-09-29 14:11] VITALS: BP 127/58
--- NOTE | 2019-09-29 22:00 | NUR ---
PATIENT RESTING COMFORTABLY IN BED. RESPIRATIONS ARE EVEN AND UNLABORED. NO S/S OF DISTRESS. CALL LIGHT WITHIN REACH. BED ALARM ENABLED.
--- NOTE | 2019-09-30 | NUR ---
PATIENT RESTING COMFORTABLY IN BED. RESPIRATIONS ARE EVEN AND UNLABORED. NO S/S OF DISTRESS. CALL LIGHT WITHIN REACH. BED ALARM ENABLED.
--- NOTE | 2019-09-30 01:36 | NUR ---
INFORMED BY MOLD BREAKER THAT PATIENT COVERTED TO NORMAL SINUS.
[2019-09-30 04:00] VITALS: BP 109/62
[2019-09-30 06:25] LABS: BASOPHILS 0.1 % (0-2); EOSINOPHILS 1.6 % (0-7); HEMATOCRIT 39.9 % (36.0-48.0); HEMOGLOBIN 12.8 g/dL (12-16); IMMATURE GRANULOCYTES 0.7 % (0-5); LYMPHOCYTES 38.1 % (15-50); MCHC 32.1 g/dL (31.0-37.0); MCV 99.8 fL (80.0-100.0); MONOCYTES 6.8 % (2-11); NEUTROPHILS 52.7 % (40-80); PLATELET COUNT 299 10x3/uL (130-400); RDW 13.7 % (11.5-14.5); WBC 8.2 10x3/uL (4.8-10.8)
[2019-09-30 07:13] LABS: ANION GAP 14.3 mmol/L (8-16); BILIRUBIN - TOTAL 0.49 mg/dL (0.2-1.3); CARBON DIOXIDE 23.3 mmol/L (21.0-32.0); CREATININE - SERUM 1.1 mg/dL (0.6-1.3); POTASSIUM - SERUM 4.6 mmol/L (3.5-5.1); PROTEIN - SERUM 6.1 g/dL (6.4-8.2)
--- NOTE | 2019-09-30 07:15 | NUR ---
RECEIVED PT IN BED EYES CLOSED RESP UNLABORED SKIN W/D COLOR WNL NAD NOTED WILL CONTINUE TO MONITOR
[2019-09-30] MEDS ORDERED: ELIQUIS2.5 MG PO (10:16)
[2019-09-30] MEDS ORDERED: MULTAQ400 MG PO (10:16)
[2019-09-30] MEDS ORDERED: CARDIZEM60 MG PO (10:16)
--- NOTE | 2019-09-30 10:47 | MORECARE ---
CASE MANAGEMENT DISCHARGE SUMMARY PATIENT: ULICES WHITLOCK UNIT: [id number] ADM DATE: 09/23/19 AGE: 79 : 42 SEX: F ROOM/BED: D.6241 AUTHOR: DIPTI ISIDRO PHYSICIAN: REFERRING PHYSICIAN: MARIA EUGENIA ANDERSON MD DATE OF SERVICE: 09/30/19 Discharge Plan Patient Name: ULICES WHITLOCK Facility: [facility]:[place] : 1940 Planned Disposition: Home with Home Health Anticipated Discharge Date: 09/29/19 Discharge Date: Expected LOS: 6 Initial Reviewer: [email or web address] Initial Review Date: 09/23/2019 Generated: 09/30/19 11:46 am Comments DCP- Discharge Planning Updated by [email or web address]: Clarita Alberto on 09/28/19 10:[address] Plan: Resume HHS, Son, Slim Whitlock will transport home #[phone]/ please notify of DC order. CM contacted patient's spouse, regarding DC plans/needs. Per MD notes, patient's confusion has improved some. Spouse states he has been patient's primary caregiver for the past 3 years. PCP: Smita Davison APRN, Dr. Branham. Pharmacy: [address] H[facility]: [facility] , HS w/aide 3 d/w. DME: [employer] provides, Nebulizer, walker, w/c, shower bench, BSC. Discussed SNF, Rehab with spouse and he declines, due to the patient's Dementia status, with change of environment her confusion increases. Spouse states the patient did HAD BEEN WALKING WITHOUT DEVICE PRIOR TO HOSPITALIZATION. Patient's home has 1 step and she has been managing it well. Patient's son: Denzel Whitlock #[phone], DTR: Gaby Sims #[phone] (c). Permission to speak with family: Yes. Spouse denies any additional needs at DC. Contacted patient's daughter, Gaby who states that patient's home is a safe place for her to dc to and patient's spouse. Spoke with son Slim Whitlock, who states returning home is a safe DC and he assist his father with his mother's care. Son will provide transportation upon DC. DCPIA - Discharge Planning Initial Assessment Updated by [email or web address]: Clarita Zarcolroy on 09/28/19 11:45 am * Is the patient Alert and Oriented? No * How many steps to enter\exit or inside your home? * PCP Smita Branham * Pharmacy [address] * Preadmission Environment Home with Family * ADLs Total Dependent * Equipment Walker * Other Equipment DME: [employer] * List name and contact numbers for known caregivers / representatives who currently or will assist patient after discharge: (son) Slim Whitlock [phone] (dtr) Gaby Sims #[phone] * Verbal permission to speak to the caregivers and representatives has been obtained from the patient. Yes * Community resources currently utilized Home Health * Please name any agencies selected above. [facility], w/aide 3XW * Additional services required to return to the preadmission environment? No * Can the patient safely return to the preadmission environment? Yes * Has this patient been hospitalized within the prior 30 days at any hospital? No External Providers External Provider: [facility] Next Contact Date: Service Request Date: Service Type: Resolution: Reviewer: Comments: Coverage Notice Reviewer: [email or web address] Maritza Diaz Notice Issued Date-Time: 09/30/2019 10:41 Notice Type: IM Discharge Notice Notice Delivered To: Patient Relationship to Patient: Self Shearer Helper Name: Delivery Method: HAND - Hand Delivered Yvrose Days: Prior Verbal Notification: Recipient Understood Notice: Yes Recipient Signature: Yes Med Rec Note Co-signed by Attending: Coverage Notice Comment: IMM explained, signed, given, copy placed in MR Last DP export: 09/28/19 10:54 a Patient Name: ULICES WHITLOCK Page 53796 at 1047 All edits/amendments must be made on the electronic document DICTATION DATE: 09/30/191045 CUSTOMER MANAGER: OSCAR 09/30/191045 RPT#: [id number] DC DATE: STATUS: ADM IN [facility] [address] [place] [address] END OF REPORT
[2019-09-30 10:56] VITALS: BP 115/66
--- NOTE | 2019-09-30 11:23 | MORECARE ---
CASE MANAGEMENT DISCHARGE SUMMARY PATIENT: ULICES WHITLOCK UNIT: [id number] ADM DATE: 09/23/19 AGE: 79 : 42 SEX: F ROOM/BED: D.6529 AUTHOR: DIPTI ISIDRO PHYSICIAN: REFERRING PHYSICIAN: MARIA EUGENIA ANDERSON MD DATE OF SERVICE: 09/30/19 Discharge Plan Patient Name: ULICES WHITLOCK Facility: [facility]:[place] : 1940 Planned Disposition: Home with Home Health Anticipated Discharge Date: 09/29/19 Discharge Date: Expected LOS: 6 Initial Reviewer: [email or web address] Initial Review Date: 09/23/2019 Generated: 09/30/19 12:23 pm Comments DCP- Discharge Planning Updated by [email or web address]: Leticia Diaz on 09/30/19 10:[address] Patient Name: ULICES WHITLOCK Encounter No: [id number] : 1940 Primary Insurance: MEDICARE A & B Anticipated DC Date: 09-29-2019 Planned Disposition: Home with Home Health External Planned Provider: : DCP follow-up note: Patient and family in agreement with discharge plan. No changes to plan. I spoke with Slim, he will pick her up when ready, nurse to call. I spoke with Ailyn with [facility] and clinical faxed. Case management will follow and assist as needed. Leticia Joe DCP- Discharge Planning Updated by [email or web address]: Clarita Alberto on 09/28/19 10:[address] Plan: Resume [facility], Son, Slim Whitlcok will transport home #[phone]/ please notify of DC order. CM contacted patient's spouse, regarding DC plans/needs. Per MD notes, patient's confusion has improved some. Spouse states he has been patient's primary caregiver for the past 3 years. PCP: Smita Davison APRN, Dr. Branham. Pharmacy: [facility] [address] [facility]: [facility] w/aide 3 d/w. DME: [employer] provides, Nebulizer, walker, w/c, shower bench, BSC. Discussed SNF, Rehab with spouse and he declines, due to the patient's Dementia status, with change of environment her confusion increases. Spouse states the patient did HAD BEEN WALKING WITHOUT DEVICE PRIOR TO HOSPITALIZATION. Patient's home has 1 step and she has been managing it well. Patient's son: Denzel Whitlock #[phone], DTR: Gaby Sims #[phone] (c). Permission to speak with family: Yes. Spouse denies any additional needs at DC. Contacted patient's daughter, Gaby who states that patient's home is a safe place for her to dc to and patient's spouse. Spoke with son Slim Whitlock, who states returning home is a safe DC and he assist his father with his mother's care. Son will provide transportation upon DC. DCPIA - Discharge Planning Initial Assessment Updated by [email or web address]: Clarita Alberto on 09/28/19 11:45 am * Is the patient Alert and Oriented? No * How many steps to enter\exit or inside your home? * PCP Smita Branham * Pharmacy [facility] [address] * Preadmission Environment Home with Family * ADLs Total Dependent * Equipment Walker * Other Equipment DME: [employer] * List name and contact numbers for known caregivers / representatives who currently or will assist patient after discharge: (son) Slim Whitlock [phone] (dtr) Gaby Sims #[phone] * Verbal permission to speak to the caregivers and representatives has been obtained from the patient. Yes * Community resources currently utilized Home Health * Please name any agencies selected above. [facility], w/aide 3XW * Additional services required to return to the preadmission environment? No * Can the patient safely return to the preadmission environment? Yes * Has this patient been hospitalized within the prior 30 days at any hospital? No Coverage Notice Reviewer: [id number] Maritza Diaz Notice Issued Date-Time: 09/30/2019 10:41 Notice Type: IM Discharge Notice Notice Delivered To: Patient Relationship to Patient: Self Risk Analyst Name: Delivery Method: HAND - Hand Delivered Yvrose Days: Prior Verbal Notification: Recipient Understood Notice: Yes Recipient Signature: Yes Med Rec Note Co-signed by Attending: Coverage Notice Comment: IMM explained, signed, given, copy placed in MR Last DP export: 09/30/19 9:47 a Patient Name: ULICES WHITLOCK Page [id number] at 1123 All edits/amendments must be made on the electronic document DICTATION DATE: 09/30/191122 CARDIOVASCULAR PHYSICIAN ASSISTANT: OSCAR 09/30/191122 RPT#: [id number] DC DATE: STATUS: ADM IN [facility] [address] [place] [address] END OF REPORT
--- NOTE | 2019-09-30 13:10 | NUR ---
REVIEWED DISCHARGE INSTRUCTIONS WITH PT AND SON BOTH STATE UNDERSTANDING COPY GIVEN INFORMATION GIVEN TO OBTAIN COUPON FOR MULTAQ IV DCD TO RFAWITH IV CATHETER INTACT SITE FREE OF REDNESS OR EDEMA PT DISCHARGED HOME LEFT UNIT VIA W/C IN STABLE CONDITION
--- NOTE | 2019-09-30 17:11 | MORECARE ---
CASE MANAGEMENT DISCHARGE SUMMARY PATIENT: ULICES WHITLOCK UNIT: [id number] ADM DATE: 09/23/19 AGE: 79 : 42 SEX: F ROOM/BED: D.7136 AUTHOR: DIPTI ISIDRO PHYSICIAN: REFERRING PHYSICIAN: MARIA EUGENIA ANDERSON MD DATE OF SERVICE: 09/30/19 Discharge Plan Patient Name: ULICES WHITLOCK Facility: [facility]:[place] : 1940 Planned Disposition: Home with Home Health Anticipated Discharge Date: 09/29/19 Discharge Date: 09/30/2019 Expected LOS: 6 Initial Reviewer: [email or web address] Initial Review Date: 09/23/2019 Generated: 09/30/19 6:11 pm Comments DCP- Discharge Planning Updated by [email or web address]: Leticia Diaz on 09/30/19 10:[address] Patient Name: ULICES WHITLOCK Encounter No: [id number] : 1940 Primary Insurance: MEDICARE A & B Anticipated DC Date: 09-29-2019 Planned Disposition: Home with Home Health External Planned Provider: : DCP follow-up note: Patient and family in agreement with discharge plan. No changes to plan. I spoke with Slim, he will pick her up when ready, nurse to call. I spoke with Ailyn with [email or web address] [facility] and clinical faxed. Case management will follow and assist as needed. Leticia Diaz DCP- Discharge Planning Updated by [email or web address]: Clarita Alberto on 09/28/19 10:[address] Plan: Resume [facility], Son, Slim Whitlock will transport home #[phone]/ please notify of DC order. CM contacted patient's spouse, regarding DC plans/needs. Per MD notes, patient's confusion has improved some. Spouse states he has been patient's primary caregiver for the past 3 years. PCP: Smita Davison APRN, Dr. Branham. Pharmacy: [facility] [address] H[facility]: [facility] w/aide 3 d/w. DME: [employer] provides, Nebulizer, walker, w/c, shower bench, BSC. Discussed SNF, Rehab with spouse and he declines, due to the patient's Dementia status, with change of environment her confusion increases. Spouse states the patient did HAD BEEN WALKING WITHOUT DEVICE PRIOR TO HOSPITALIZATION. Patient's home has 1 step and she has been managing it well. Patient's son: Denzel Whitlock #[phone], DTR: Gaby Sims #[phone] (c). Permission to speak with family: Yes. Spouse denies any additional needs at DC. Contacted patient's daughter, Gaby who states that patient's home is a safe place for her to dc to and patient's spouse. Spoke with son Slim Whitlock, who states returning home is a safe DC and he assist his father with his mother's care. Son will provide transportation upon DC. DCPIA - Discharge Planning Initial Assessment Updated by [email or web address]: Clarita Alberto on 09/28/19 11:45 am * Is the patient Alert and Oriented? No * How many steps to enter\exit or inside your home? * PCP Smita Branham * Pharmacy [facility] [address] * Preadmission Environment Home with Family * ADLs Total Dependent * Equipment Walker * Other Equipment DME: [employer] * List name and contact numbers for known caregivers / representatives who currently or will assist patient after discharge: (son) Slim Whitlock [phone] (dtr) Gaby Sims #[phone] * Verbal permission to speak to the caregivers and representatives has been obtained from the patient. Yes * Community resources currently utilized Home Health * Please name any agencies selected above. [facility], w/aide 3XW * Additional services required to return to the preadmission environment? No * Can the patient safely return to the preadmission environment? Yes * Has this patient been hospitalized within the prior 30 days at any hospital? No Coverage Notice Reviewer: [id number] Maritza Diaz Notice Issued Date-Time: 09/30/2019 10:41 Notice Type: IM Discharge Notice Notice Delivered To: Patient Relationship to Patient: Self Ware Cleaner Name: Delivery Method: HAND - Hand Delivered Yvrose Days: Prior Verbal Notification: Recipient Understood Notice: Yes Recipient Signature: Yes Med Rec Note Co-signed by Attending: Coverage Notice Comment: IMM explained, signed, given, copy placed in MR Last DP export: 09/30/19 10:23 a Patient Name: ULICES WHITLOCK Page [id number] at 1711 All edits/amendments must be made on the electronic document DICTATION DATE: 09/30/191710 DIRECTOR INDUSTRIAL: OSCAR 09/30/191710 RPT#: [id number] DC DATE:09/30/19 STATUS: DIS IN [facility] [address] [place] [address] END OF REPORT
== END 2019-09-30 13:10 | disposition home health service (06) | DRG 309 ==
LOC: D.ER 11:13 → D.M2 12:16 → D.CVICU 09-26 17:52 → D.M2 09-28 12:11
PROVIDERS: Family Medicine; ADMIT Internal Medicine Nephrology; ATTEND Internal Medicine Nephrology
DX: I48.91 Unspecified atrial fibrillation (principal); J44.1 Chronic obstructive pulmonary disease with (acute) exacerbation; F17.213 Nicotine dependence, cigarettes, with withdrawal; N17.9 Acute kidney failure, unspecified; F03.90 Unspecified dementia, unspecified severity, without behavioral disturbance, psychotic disturbance, mood disturbance, and anxiety; E78.5 Hyperlipidemia, unspecified; K21.9 Gastro-esophageal reflux disease without esophagitis